=== PATIENT | male | born 1980 | race Caucasian/White ===

== ENCOUNTER 2016-09-04 12:10 | Day surgery (SDC) | payer MEDICARE ==
[~2016-09-04] VITALS: Ht 177.8 cm; Wt 78.7 kg
[2016-09-04] VITALS (7 sets, daily range): BP systolic 120–152; BP diastolic 4–86; PULSE 66–93; RESP 11–16; O2SAT 95–100
[~2016-09-04 12:10] MED LIST: CeFAZolin Inj 2 GM in IV Premix 1 EACH IV ONE; LORA-302 PO; Lactated Ringer's 1,000 ML IV ONE
[2016-09-04] MEDS ORDERED: Ondansetron 2 mg/mL 2 mL Inj ONE (12:11)
[2016-09-04] MEDS ORDERED: Propofol 10,000 mCg/mL 20 mL Inj ONE (12:11)
[2016-09-04] MEDS ORDERED: MetoCLOpramide 5 mg/mL 2 mL Inj ONE (12:11)
[2016-09-04] MEDS ORDERED: fentaNYL-PF 50 mCg/mL 2 mL Inj ONE (12:11)
[2016-09-04] MEDS ORDERED: Dexamethasone 4 mg/mL Inj ONE (12:11)
[2016-09-04] MEDS ORDERED: CeFAZolin Inj 2 gm / 50mL D5W IV ONE (12:35)
[2016-09-04] MEDS ORDERED: Lactated Ringer's 1,000 ML IV ONE ×2 (15:07→15:30)
[2016-09-04] MEDS ORDERED: Lactated Ringer's 500 ML IV PRN (15:24)
[2016-09-04] MEDS ORDERED: Lactated Ringer's 1,000 ML IV SCH (15:24)
--- NOTE | 2016-09-04 15:24 | PCM.HPANE ---
Patient Data Date of Service: Sep 04, 2016 (1400) Surgeon Admitting Provider: Attending Provider:Katherin Rivera MD Primary Care Physician:Win Elizalde DO Other Provider:Jordyn Cardoza Anesthesia Reason for Visit Right Inguinal Hernia Ht/WT & BMI Height (Feet): 5 Height (Inches): 10 Weight (Kilograms): 78.7 Body Mass Index 24.00 Allergies Coded Allergies: No Known Allergies (Unverified , 09/01/16) Past Anesthesia History Anesthesia History: Denies:: Fam Anesthesia Reaction, Fam Malignant Hypertherm Diabetes History Hx Diabetes?: No MRSA MRSA: No Medications Reported Medications Lorazepam (Ativan)0.5 Mg Tablet0.5 Mg PO TID PRN For Anxiety Ref 0 09/01/16 History History of ENT Problems?: No HEENT History: Denies:: Abnormal Airway Cataracts Difficult Intubation Dysphagia Glaucoma Hearing Problem Sinus Problem TMJ Denture Type: None Teeth Condition: Within Normal Limits Hx of Heart Problems?: No Cardiovascular History: Denies:: Hypertension Irregular Heartbeat Hx of Respiratory Problem?: No Respiratory History: Denies:: Use of C-PAP Machine Hx Neurologic Problems?: No Neurological History: Denies:: Alzheimer's Disease CVA Dementia Dizziness Headaches Multiple Sclerosis Parkinson's Disease Peripheral Neuropathy Seizures TIA Hx of GI Problems?: Yes Other GI Pertinent History: RT INGUINAL HERNIA=CURRENT PROBLEM Hx of Problems?: No Male Hx: Denies:: Prostate Problems Scrotal Mass Testicular Surgery Skin History: Denies:: History Skin Disorders? Pressure Ulcers Hx Musculoskeletal Problems?: Yes Musculoskeletal History: Positive for:: Fibromyalgia Hx of Psycho/Social Problems?: Yes Psycho Social History: Positive for:: Anxiety Hx Surgeries?: No Hx Any Other Health Problems?: No Other History: Denies:: Cancer Endocrine Disease Hospitalization Hx Diabetes: No Hx Alcohol Use: No (QUIT 2006)Have You Smoked inLast 12 mo: No Stop/Bang S-Snoring: Do You Snore Loudly: No T-Tired: feel tired, fatigued: No O-Obsered: Observed not breath: No P-Blood Pressure: treated: No B- Body Mass Index > 35 kg/m2: No A- Age over 50: No N- Neck Large Circumference: No G- Gender Male: Yes ROHITH Total Score: 1 Risk Assessment Category Category 1A: Patient has history of documented sleep apnea, and HAS NOT received any narcotic, sedative or anesthesia administration during this stay. Category 1B: Patient has history of documented sleep apnea, and HAS received any narcotic , sedative or anesthesia administration during this stay Category 2: Patient has SUSPECTED Obstructive Sleep Apnea, and HAS received any narcotic , sedative or anesthesia administration during this stay. Category 3: Patient has SUSPECTED Obstructive Sleep Apnea and HAS NOT received narcotic, sedative or anesthesia administration during this stay. Category 4: Outpatient in Procedural Areas with known sleep apnea or who screen positive for High Risk via the STOP/BANG questionnaire. Exam Exam Vital Signs Vital Signs Date Time Temp Pulse Resp B/P Pulse Ox O2 Delivery O2 Flow Rate FiO2 09/04/16 12:49 36.2 73 16 152/86 100 Room Air General Appearance: Alert, Oriented X3, Cooperative, No Acute Distress HEENT/AIRWAY: MP 1 Lungs: Clear to Auscultation Heart: Exam Unremarkable Plan Impression Patient chart reviewed, patient interviewed and anesthestic plan with risks, benefits, and alternatives discussed, and informed consent obtained. ASA Physical Status: ASA1 Normal Healthy Anesthetic Plan: GA Bene/Risks/Altern/Consents: Yes HP Complete Prior to Induction: Yes Laci Kinsey MD Sep 04, 2016 15:24
[2016-09-04] MEDS ORDERED: Dexamethasone 4 mg/mL Inj IVPUSH PRN (15:25)
[2016-09-04] MEDS ORDERED: Phenylephrine 10,000 mCg/mL Inj IVPUSH PRN (15:25)
[2016-09-04] MEDS ORDERED: HYDROmorphone 1 mg/mL Inj IVPUSH PRN (15:25)
[2016-09-04] MEDS ORDERED: fentaNYL-PF 50 mCg/mL 2 mL Inj IVPUSH PRN (15:25)
[2016-09-04] MEDS ORDERED: EPHEDrine Sulfate 50 mg/mL Inj IVPUSH PRN (15:25)
[2016-09-04] MEDS ORDERED: Ondansetron 2 mg/mL 2 mL Inj IVPUSH PRN (15:25)
[2016-09-04] MEDS ORDERED: Bupivacaine-MPF 0.5% 30 mL Inj INFILTRATE ONE (15:25)
[2016-09-04] MEDS ORDERED: MetoCLOpramide 5 mg/mL 2 mL Inj IVPUSH PRN (15:25)
[2016-09-04] MEDS ORDERED: oxyCODONE-Acetamin 5-325 mg Tablet PO PRN (16:35)
--- NOTE | 2016-09-04 16:40 | PCM.SURGOP ---
Surgical Operative Report Date of Service: Sep 04, 2016 Pre Operative Diagnosis Right groin hernia Post Operative Diagnosis Indirect right inguinal hernia Procedure: Open right inguinal hernia repair with mesh Surgeon and Wildlife Photographer: Surgeon: Katherin Rivera MD Assistants: Kem Martines PA-C; Tarsha Gonzalez MS3 Indication for Procedure This is a 36-year-old man who presented with a painful right groin bulge. He underwent a CT scan which revealed asymmetry in the right groin compared to the left although a definitive groin hernia defect was not remarked upon by the radiologist. On examination, he had a reducible tender moderate bulge, which dissipated with reduction, consistent with a right groin hernia. Therefore he was scheduled for open right groin hernia repair. Findings: 1. Small reducible indirect right inguinal hernia, without incarcerated viscera. 2. Two very firm lymph nodes on the cord, removed and sent for permanent pathology. Procedure Details The patient was brought to the operating room and placed in supine position. General anesthesia with an LMA was smoothly induced. A warming blanket and SCDs were placed. Antibiotics were infused. The operative field was prepped and draped in sterile fashion. A pause was performed to confirm the correct patient, procedure, site, and side. An oblique incision was made between the ASIS and pubic tubercle. Subcutaneous tissue was dissected with electrocautery. The external oblique was incised sharply and divided with Metzenbaum scissors. The spermatic cord was identified, dissected free of surrounding tissues, and surrounded with a Maria Del Carmen drain for retraction. The ilioinguinal nerve was identified and divided high. The cremasteric muscles along the spermatic cord were spread and divided to expose the indirect hernia sac, which was small. It was opened and then dissected off of the spermatic cord. There were no incarcerated viscera. Care was taken to preserve the spermatic cord contents, including the vas deferens and visible vasculature. It was ligated high using a 3-0 vicryl, amputated, discarded, and the stump was reduced after hemostasis was confirmed. Two very firm 1.5 cm lymph nodes were identified on the surface of the cord and were removed and sent for final pathology. Three small cord lipomas were resected as well and discarded. Attention was then turned to mesh placement. The direct space was noted to be thinned and weak with a tiny bulge. A piece of 3 inch by 6 inch ultralight Bard Softmesh was fashioned to size with care taken to provide adequate coverage of the floor. Interrupted 3-0 PDS stitches were then used to suture it into place. The first stitch was placed in the tissue overlying the pubic tubercle with greater than 1 cm of overlap to prevent recurrence. Additional stitches were then used at 1.5 cm intervals to suture the lateral aspect of the mesh to the shelving edge of the inguinal ligament. Several stitches were then placed medially to affix the mesh to the conjoined tendon. At the end of the case, the floor was covered with mesh. Two tails were fashioned to recreate the internal ring. These were sutured to each other and to the shelving edge of the inguinal ligament. The new ring was large enough to pass the cord and the tip of the surgeon's fifth digit. The Cromona drain was removed and the external oblique was then closed with a running 3-0 Vicryl stitch. Subcutaneous tissue was closed with 3-0 Vicryl stitches. The skin was closed with a running 4-0 Monocryl stitch. Marcaine 0.5% with epinephrine was infused in the skin for postoperative analgesia. A sterile dressing was placed. The patient was awakened from general anesthesia and taken to postoperative care unit in good condition. Complications There were no periprocedural complications identified. Surgical Specimen Removed: Yes Specimen sent to Pathology: Yes Surgical Specimen description: Spermatic cord lymph nodes Anesthetic Plan: GA Grafts, Implants: None, Implants-See Implant Record Output, Estimated Blood Loss: 2 (ml) Blood Administration during burdick: No Katherin Rivera MD Sep 04, 2016 16:39
--- NOTE | 2016-09-04 16:50 | PCM.ANEP1 ---
Post Anesthesia PACU Phase 1 Assessment Vital Signs Vital Signs Date Time Temp Pulse Resp B/P Pulse Ox O2 Delivery O2 Flow Rate FiO2 09/04/16 12:49 36.2 73 16 152/86 100 Room Air Anesthetic Administered: GA Level of Alertness: Sleeping, hard to arouse Pain: No Nausea or Vomiting: No CV Function & Hydration Stable: Yes Airway Device: Oxygen Delivery: Nasal Cannula Lungs: Clear to Auscultation Dermatome Level: Full Sensation PACU Phase 2 Assessment Complications: No Patient Instructions Provided: N/A Laci Kinsey MD Sep 04, 2016 16:50
--- NOTE | 2016-09-06 11:41 | PATH ---
SURGICAL PATHOLOGY Attending Physician:Katherin Rivera MD CASE STATUS: Signed Out PATIENT NAME: EMANUEL JIANG PID: [id number] : 1980 DATE COLLECTED:09/04/2016 00:00 SPECIMEN: Lymph Node, Biopsy CLINICAL HISTORY: 1). RIGHT GROIN LYMPH NODES FINAL DIAGNOSIS: 1.RIGHT GROIN LYMPH NODES: SINGLE BENIGN LYMPH NODE WITH NONSPECIFIC REACTIVE CHANGES. ICD10 R59.0 GROSS DESCRIPTION: The specimen is received in formalin, labeled with the patient's name, sublabeled as right groin lymph nodes and consists of a piece of adipose tissue (4.0 x 2.2 x 1.2 cm) containing a lymph node (3.0 x 2.2 x 0.8 cm). Section code: (A-B) one lymph node, serially sectioned; (C) remaining adipose tissue. Specimen entirely submitted. 09/05/16 JM MICRO DESCRIPTION: See diagnosis. ICD-9 CODES: CPT CODES: 1: 77107 Electronically Signed Out Nyaan Julien MD [facility] [address], [place] [address] Technical component performed at [facility], [address] [place] [address] Ave[address], [place], [address]
== END 2016-09-04 23:59 | disposition home or self-care (01) ==
LOC: SAS 12:10
PROVIDERS: ATTEND Surgery
DX: K40.90 Unilateral inguinal hernia, without obstruction or gangrene, not specified as recurrent (principal); D17.6 Benign lipomatous neoplasm of spermatic cord
CPT/HCPCS: 49505; 55520; C1781; J1100; J1885; J2250; J2405; J2765; J3010; J7120